=== PATIENT | male | born 1955 | race Caucasian/White ===

== ENCOUNTER 2025-01-15 18:10 | Emergency (ER) | payer MEDICARE, SELFPAY ==
[2025-01-15 18:12] VITALS: BMI 25.2
[2025-01-15 18:41] VITALS: BP 128/70; PULSE 71; RESP 16; TEMP 36.9; O2SAT 99
--- NOTE | 2025-01-15 18:59 | PD.EDSYNC ---
ED Syncope RME/HPI General Chief Complaint: Syncope / Near Syncope Stated Complaint: SYCOPAL EPISODE; FALL & HIT L) MORMONISM/ELBOW Time Seen by Provider: 01/15/25 19:01 Arrival date/time: 01/15/25 18:10 RME / HPI RME / HPI narrative: This section includes all my notes and documentations, including HPI, PE, and ED course. Edwin Gomez MD HPI: 69yo male with a history of DM, HTN, HLD presents to the ED for a chief complaint of syncope. Patient was getting up from his chair when he felt lightheaded, passed out and fell. He hit his head. Currently, no headache, dizziness or chest pain. Feels back to normal. No other complaints reported. ROS: All negative except as documented in HPI. Physical Exam: General: Alert and oriented. No acute distress. Eyes: Conjunctivae and lids clear. EOMI. PERRL. ENT: No signs of head trauma. Neck: Supple. No tenderness. Heart: RRR. Lungs: No respiratory distress. Good air movement. No rhonchi, wheezing, rales. Chest: No tenderness. Abdomen: Soft and nontender. Normal bowel sounds. No distension. No rebound or guarding. Back: No tenderness. Legs: No clubbing, cyanosis, edema. Skin: Warm and dry. Multiple abrasions in the left elbow area, varying size and shape. Neuro: Alert and oriented X 3. Cranial Nerves II-XII grossly intact. No peripheral motor deficits. Musculoskeletal: All major joints and bones are not tender with no limited ROM. I reviewed all diagnostic test results. My interpretation of the EKG is NSR with nonspecific ST-T changes. My review of the CT head report is NAD. My review of the CT cervical spine report is NAD. My review of the CT chest abdomen pelvis report is NAD. Blood and urine tests unremarkable. At this point, diagnoses include syncope of unclear etiology, fall, and multiple abrasions. Treatment here included wound care, tDap, topical bacitracin, and Augmentin. Patient remained stable. Recommended more outpatient workup. Based on my best medical judgment, made decision no further evaluation or treatment indicated at this time. Patient understands and agrees to the discharge instructions customized and printed, see below. Discharge Instructions from Dr. Gomez printed for you: 1. After extensive evaluation, exact cause of your fainting was not determined. But there is no immediately life-threatening condition. Such as stroke or brain tumor or heart attack. 2. Wound care of the left elbow skin abrasions as instructed in the attached handout. 3. To help prevent another episode, eat regular nutritious meals. For good hydration, increase oral fluid and maintain clear urine. If dark or yellow, increase oral fluid. And do everything slowly. When you sit up or stand up, wait a minute before you progress. 4. See a private doctor on 01/16/2025 for recheck and further care. Ask to review all test results and official radiology reports, to make sure you receive all necessary follow-ups and monitoring. Ask for help finding the cause and treatment of what happened. To make sure there is no serious underlying heart condition, ask to help you get more tests for your heart that cannot be done here in the ER. Such as Holter Monitor (cardiac monitoring at home from a day to even a month), heart stress test (on treadmill or with medication), echocardiogram (imaging of your heart structures), heart catherization (checking for blockages in your heart arteries), and a referral to see a Service Porter. Ask for MRI imaging of the brain and referral to see neurologist. 5. Seek immediate medical care with worsening, another fainting episode, or with any concerns. Edwin Gomez MD Related Data Home Medications ?Medication ?Instructions ?Recorded ?Confirmed metformin 1,000 mg tablet 1,000 mg PO BID #0 tabs 02/07/15 11/01/23 (Glucophage) metoprolol tartrate 100 mg tablet 50 mg PO QDAY #0 tabs 02/07/15 11/01/23 rosuvastatin 20 mg tablet 20 mg PO QDAY 03/02/21 11/01/23 lisinopril 20 mg tablet 20 mg PO QDAY 07/30/22 11/01/23 famotidine 20 mg tablet 20 mg PO QDAY 11/01/23 11/01/23 hydrochlorothiazide 12.5 mg capsule 12.5 mg PO QDAY 11/01/23 11/01/23 Allergies Allergy/AdvReac Type Severity Reaction Status Date / Time No Known Allergies Allergy Verified 01/15/25 18:14 Review of Systems Review of Systems Systems Reviewed: All systems reviewed, normal except as documented Past Medical History Past Medical History NEUROLOGIC: Negative Neurological Disorders or Seizures CARDIAC: Positive Cardiac Disorders, Hypercholesterolemia and Hypertension; Negative Congestive Heart Failure, Edema, Cellulitis or Varicose Veins RESPIRATORY: Positive Bronchitis and Sleep Apnea; Negative Chronic Obstructive Pulmonary Disease (COPD) GASTROINTESTINAL: Positive Gastrointestinal Disorders, Gastrointestinal Bleed (at age 17) and Gastroesophageal Reflux Disease; Negative Hepatitis or Pancreatitis GENITOURINARY: Negative Genitourinary Disorders, Renal Disease or Benign Prostatic Hyperplasia MUSCULOSKELETAL: Positive Musculoskeletal Disorders and Gout ENT: Positive Cataracts ENDOCRINE: Positive Endocrine Disorders and Diabetes Mellitus Type 2 (PO MEDS); Negative Diabetes Mellitus Type 1 HEMATOLOGIC: Positive Blood Disorders and Anemia (DURING GI BLEED); Negative Leukemia, Hemophilia, Thalassemia, Sickle Cell Disease or Clotting Problems OTHER HISTORY: Positive Hospitalization (GI BLEED AT AGE 17), Chicken Pox, Measles, Mumps and Cancer; Negative Autoimmune Disease, Down Syndrome, Developmental Delay, Shingles, Falls, Blood Transfusions, Anesthesia Reactions, Chemotherapy, Radiation Therapy or MRSA Family History FAMILY HISTORY: Positive Family Psychiatric Problems, Family Cardiac Disorders, Family Cancer and Family Surgery; Negative Family Respiratory Disorders, Family Gastrointestinal Problems or Family Anesthesia Reaction Surgical History SURGICAL: Positive Tonsillectomy, Abdominal Surgery and Vasectomy; Negative Cardiac Surgery, Pacemaker, Endocrine Surgery, Nephrectomy, Joint Replacement or Neurologic Surgery Social History SMOKING STATUS: Never smoker SUBSTANCE USE: does not use ED Exam Narrative Physical exam: As noted in HPI. Course Quality Measures none Orders Category Date Time Status EKG (ED ONLY) *Do not use* NOW Care 01/15/25 19:03 Completed Wound Care [Wound Care] NOW Care 01/15/25 19:[address] cervical spine wo con Stat Exams 01/15/25 19:[address] chest abdomen pelvis wo Stat Exams 01/15/25 19:[address] head/brain wo con Stat Exams 01/15/25 19:03 Completed EKG (ED Only) Stat Exams 01/15/25 19:03 Draft Bilirubin,Direct Stat Lab 01/15/25 19:30 Completed CBC Stat Lab 01/15/25 19:30 Completed CMP [Comprehensive Metabolic Panel] Stat Lab 01/15/25 19:30 Completed Free T4 (Free Thyroxine) Stat Lab 01/15/25 19:30 Completed Magnesium Stat Lab 01/15/25 19:30 Completed TSH [Thyroid Stimulating Hormone] Stat Lab 01/15/25 19:30 Completed Troponin I Stat Lab 01/15/25 19:30 Completed UA, C/S IF [Urinalysis, C/S if Indicated] Stat Lab 01/15/25 19:45 Completed Amoxicillin/Pot Clav 875 [Augmentin 875] Med 01/15/25 19:01 Discontinued 1 tab PO X1 ONE Bacitracin Oint pkt Med 01/15/25 19:01 Discontinued 1 gm TOP X1 ONE TET,DIP/PERT AC (Adult)-Tdap [Boostrix Adult (Tdap) Med 01/15/25 19:01 Discontinued Vacc] 0.5 ml IMI .ONCE ONE Vital Signs Vital signs: Vital Signs Temperature 98.5 F 01/15/25 18:41 Pulse Rate 71 01/15/25 18:41 Respiratory Rate 16 01/15/25 18:41 Blood Pressure 128/70 01/15/25 18:41 Pulse Oximetry (%) 99 01/15/25 18:41 Oxygen Delivery Method Room Air 01/15/25 18:41 Syncope MDM Narrative MDM Narrative:: 69yo male with a history of DM, HTN, HLD presents to the ED for a chief complaint of syncope. Patient was getting up from his chair when he felt lightheaded, passed out and fell. He did hit his head. No headache, dizziness or chest pain. No other complaints reported. Patient data External records reviewed:: [facility] previous records (Per chart review, patient was seen here on 11/14/21 for hypertension.) Clinical information provided by:: patient Social determinants that could affect healthcare access:: none Patient has the following chronic illnesses:: DM, HTN, HLD How is presenting disease/condition affected by chronic disease/condition?: uneffected by Evaluation data The following diagnostics were reviewed and interpreted by me:: lab results, radiology exam(s) and EKG tracing(s) (My interpretation of the EKG is: Sinus rhythm (75 bpm) with nonspecific ST-T changes. Edwin Gomez MD) Lab and/or radiology exams considered but not ordered:: none Interpretation Summary: I reviewed all diagnostic test results. My interpretation of the EKG is NSR with nonspecific ST-T changes. My review of the CT head report is NAD. My review of the CT cervical spine report is NAD. My review of the CT chest abdomen pelvis report is NAD. Blood tests unremarkable. UA unremarkable. Medications / Prescriptions Medications or Prescriptions considered but not ordered:: none Medication administrations:: Medication Administration History Discontinued Medications Amoxicillin/Clavulanate Potassium (Amoxicillin/Pot Clav 875 Tablet) 1 tab PO X1 ONE Stop: 01/15/25 19:02 Last Admin: 01/15/25 19:33 Dose: 1 tab Documented By: RAND Bacitracin (Bacitracin Oint 1 Gm Packet) 1 gm TOP X1 ONE Stop: 01/15/25 19:02 Last Admin: 01/15/25 19:34 Dose: 1 gm Documented By: RAND Diphtheria/Tetanus/Acell Pertussis (Diphth,Pertuss(Acell),Tet Vac 0.5 Ml Syr- Adult) 0.5 ml IMi .ONCE ONE Stop: 01/15/25 19:02 Last Admin: 01/15/25 19:34 Dose: 0.5 ml Documented By: RAND Wound care, tDap, topical bacitracin, Augmentin. Consultations Consultation(s) initiated? (list below): No Diagnosis Syncope Differential Diagnosis: syncope due to orthostatic hypotension, vasovagal syncope, complete atrioventricular block, subarachnoid hemorrhage, pulmonary embolism, dehydration and other (CVA, brain tumor) Most likely diagnosis given after review of the tests above:: Syncope of unclear etiology, Fall, Multiple abrasions Admission Indicated Admission indicated?: not indicated Explain why admission is indicated or not indicated:: With no condition needing emergent intervention, there was no indication for admission. Admission Request Was there a request for admission?: No Disposition Plan Disposition Plan: Discharge Discharge Attestation Discharge Attestation: The patient and all family members were given an opportunity to ask questions and understood the discharge instructions. Discharge instructions specifically effects, indications for sooner follow up or return to the emergency department, and the expected course of current diagnosis. Patient condition: Stable Discharge Plan Plan Patient Disposition: HOME (Self Care) Prescriptions/Referrals Prescriptions/Med Rec: No Action metoprolol tartrate 100 MG tablet 50 mg PO QDAY Qty: 0 metformin [Glucophage] 1,000 MG tablet 1,000 mg PO BID Qty: 0 rosuvastatin 20 mg Tablet 20 mg PO QDAY famotidine 20 mg tablet 20 mg PO QDAY hydrochlorothiazide 12.5 mg capsule 12.5 mg PO QDAY lisinopril 20 mg Tablet 20 mg PO QDAY Referrals: No Primary/Family,Physician [Primary Care Provider] - In 1 week Problem List Clinical Impression: Syncope, Fall, Multiple abrasions Patient/Caregiver Discharge Instructions Discharge Activity: activity as tolerated Education Materials: ED Abrasions, ED Fainting, Uncertain Cause Additional Instructions: Discharge Instructions from Dr. Gomez printed for you: 1. After extensive evaluation, exact cause of your fainting was not determined. But there is no immediately life-threatening condition. Such as stroke or brain tumor or heart attack. 2. Wound care of the left elbow skin abrasions as instructed in the attached handout. 3. To help prevent another episode, eat regular nutritious meals. For good hydration, increase oral fluid and maintain clear urine. If dark or yellow, increase oral fluid. And do everything slowly. When you sit up or stand up, wait a minute before you progress. 4. See a private doctor on 01/16/2025 for recheck and further care. Ask to review all test results and official radiology reports, to make sure you receive all necessary follow-ups and monitoring. Ask for help finding the cause and treatment of what happened. To make sure there is no serious underlying heart condition, ask to help you get more tests for your heart that cannot be done here in the ER. Such as Holter Monitor (cardiac monitoring at home from a day to even a month), heart stress test (on treadmill or with medication), echocardiogram (imaging of your heart structures), heart catherization (checking for blockages in your heart arteries), and a referral to see a Service Porter. Ask for MRI imaging of the brain and referral to see neurologist. 5. Seek immediate medical care with worsening, another fainting episode, or with any concerns. Print Language: German Stand Alone Forms: [employer] Award Info., Patient Portal Info Letter
--- NOTE | 2025-01-15 19:03 | XR_ITS ---
Examination: CT brain head without contrast. 2-D sagittal coronal reconstructions Date and time of exam:January 15, 2025, 195 hours INDICATIONS: Syncopal episode today, patient fell with injury to the head, head pain CTDI: vol (mGy):53.7 DLP: (mGycm):1123 Technique: Multiple CT axial sections of the brain have been obtained, 5 mm slice thickness. Contrast has not been administered. 2-D sagittal, coronal reconstructions have been obtained Low dose protocols were performed. One or more of the following dose reduction techniques were used; automated exposure control, adjustment of the mA and/or KV according to patient size, use of iterative reconstruction technique. Findings: No significant ventricular enlargement. Left forehead scalp swelling Intra-axial or extra-axial hemorrhage density is not seen. No mass effect or midline shift Basal cisterns are not remarkable. Fourth ventricle is midline. Cranial vault intact. Impression: Negative for acute hemorrhage, mass effect or midline shift
--- NOTE | 2025-01-15 19:03 | XR_ITS ---
Examination: CT cervical spine without contrast 2-D sagittal reconstructions 2-D coronal reconstructions 3-D reconstructions. Exam date and time:January 15, 2025, 1953 hours INDICATIONS: Neck pain today after syncopal episode CTDI:vol (mGy) 8.95 DLP: (mGycm) 200 Technique: Multiple 2 mm axial sections of the cervical spine have been obtained. The coronal and sagittal reconstructions have been obtained. 3-D reconstructions have been obtained. Low dose protocols were performed. One or more of the following dose reduction techniques were used; automated exposure control, adjustment of the mA and/or KV according to patient size, use of iterative reconstruction technique. Findings: Axial sections demonstrate intact base of the skull. C1 exhibit satisfactory relationship to the odontoid. No acute cervical vertebral body fracture seen. Alignment posterior spinous processes satisfactory. Impression: No acute cervical fracture. Advanced degenerative disc disease C3-C4, C4-C5, C5-C6, C6-C7
--- NOTE | 2025-01-15 19:03 | XR_ITS ---
Examination: CT chest, without intravenous contrast. CT abdomen, without intravenous contrast. CT pelvis, without intravenous contrast. 2-D sagittal and coronal reconstructions. 3-D reconstructions. Date and time of exam:January 15, 20252000 hours INDICATIONS: Patient fell today with image of the chest and abdomen, chest pain and abdomen pain CTDI vol (mgy) 8.72 DLP (MGycm)660 Technique: Multiple CT images, 3.0 mm slice thickness, obtained chest, abdomen, pelvis, with the high-resolution 64 slice scanner.. Sagittal and coronal 2-D reconstructions are obtained. 3-D reconstructions Low dose protocols were performed. One or more of the following dose reduction techniques were used; automated exposure control, adjustment of the mA and/or KV according to patient size, use of iterative reconstruction technique. Findings: Thoracic aorta pulmonary arteries intact. No hemopericardium, pneumothorax, pulmonary contusion or hemothorax Sternum thoracic and lumbar vertebral body segments segments appear intact Ribs appear intact No liver or splenic or renal laceration Abdominal aorta intact No free body in the abdomen or pelvis Negative for pneumoperitoneum Normal appendix Colonic diverticulosis Urinary bladder intact Hips bones of the pelvis intact IMPRESSION: Thoracic aorta pulmonary arteries intact No hemopericardium, pneumothorax pulmonary contusion or hemothorax No abdominal parenchymal laceration Abdominal aorta intact. No free blood in the abdomen or pelvis. Osseous structures intact
--- NOTE | 2025-01-15 19:03 | EKG_ITS ---
[facility] Test Date: 2025-01-15 Pat Name: MARCY RASHID Department: Room: - Gender: Male Circuit Designer: : 1955 Requested By: Edwin Mason Order Number: [id number] Reading MD: Edwin Mason Measurements Intervals [place] Rate: 75 P: 61 SD: 173 QRS: -21 QRSD: 93 T: 44 QT: 377 QTc: 422 Interpretive Statements SINUS RHYTHM BORDERLINE LEFT AXIS DEVIATION [QRS AXIS < -20] Compared to ECG 07/30/2022 11:42:09 Sinus bradycardia no longer present Sinus arrhythmia no longer present T-wave abnormality no longer present /store/S0/[id number].pdf
[2025-01-15] MEDS: AMOXICILLIN/POT CLAV 875 TABLET 1 TAB PO (19:33)
[2025-01-15] MEDS: BACITRACIN OINT 1 GM PACKET TOP (19:34)
[2025-01-15] MEDS: DIPHTH,PERTUSS(ACELL),TET VAC 0.5 ML SYR- ADULT IMi (19:34)
[2025-01-15 19:43] LABS: Basophils # (Auto) 0.1 Thou/mm3 (0.0-0.2); Basophils % (Auto) 0 % (0-2.5); Eosinophils # (Auto) 0.2 Thou/mm3 (0.0-0.5); Eosinophils % (Auto) 1 % (0-10); Hematocrit 39.0 % (41.0-53.0); Hemoglobin 13.4 g/dL (13.5-16.0); Immature Granulocytes Auto 0.04 Thou/mm3 (0.00-0.00); Lymphocytes # (Auto) 1.1 Thou/mm3 (1.0-4.8); Lymphocytes % (Auto) 9 % (10-50); Mean Corpuscular HGB Conc 34.4 g/dl (31.0-37.0); Mean Corpuscular Hemoglobin 29.3 pg (25.0-35.0); Mean Corpuscular Volume 85 fL (80-100); Monocytes # (Auto) 0.7 Thou/mm3 (0.0-0.8); Monocytes % (Auto) 6 % (0-12); Neutrophils # (Auto) 10.2 Thou/mm3 (1.8-7.7); Neutrophils % (Auto) 83 % (37-80); Nucleated Red Blood Cell # 0.00 Thou/mm3 (0.00-0.00); Nucleated Red Blood Cell % 0 /100 WBC (0); Platelet Count 224 Thou/mm3 (140-440); RDW Standard Deviation 39.5 fL (35.1-43.9); Red Blood Count 4.57 Miln/mm3 (4.50-5.90); White Blood Count 12.3 Thou/mm3 (3.8-10.6)
[2025-01-15 20:02] LABS: Collection Type, Urine Clean Catch
[2025-01-15 20:03] LABS: Alanine Aminotransferase 31 U/L (10-49); Albumin, Serum 4.9 gm/dL (3.4-4.8); Albumin/Globulin Ratio 2.3 (1.2-2.2); Alkaline Phosphatase 83 U/L (46-116); Anion Gap 11 (7-16); Aspartate Amino Transferase 29 U/L (0-34); BUN/Creatinine Ratio 16 Ratio (12-20); Bilirubin,Direct 0.5 mg/dL (0.0-0.3); Bilirubin,Total 1.5 mg/dL (0.3-1.2); Blood Urea Nitrogen 25 mg/dL (9-23); Calcium 10.5 mg/dL (8.3-10.6); Calcium (Corrected) 10.5 mg/dL (8.5-10.1); Carbon Dioxide 25.0 mMol/L (20.0-31.0); Chloride 98 mMol/L (98-107); Creatinine (Component) 1.6 mg/dL (0.6-1.3); Estimated Creatinine Clearance 45.1 mL/min (>60); Free T4 (Free Thyroxine) 1.20 ng/dL (0.89-1.76); Globulin 2.1 gm/dL (2.3-3.5); Glucose 159 mg/dL (74-106); Magnesium 2.0 mg/dL (1.6-2.6); Osmolality,Calculated 275 (275-295); Potassium 4.6 mMol/L (3.4-5.1); Sodium 134 mMol/L (136-145); Thyroid Stimulating Hormone 1.11 uIU/mL (0.55-4.78); Total Protein 7.0 gm/dL (5.7-8.2); Troponin I < 0.020 ng/mL (0.0-0.045); eGFR 46 See Note
[2025-01-15 20:20] LABS: Bilirubin,Urine Negative (Negative); Blood,Urine Trace (Negative); Clarity,Urine Clear (Clear/Hazy); Color,Urine Yellow (Lt Yel-Yel); Culture Indicated,Urine Not Indicated; Glucose, Urine Negative (Negative); Hyaline Casts,Urine < 1 /hpf (0-1); Ketones,Urine Negative (Negative); Leukocyte Esterase,Urine Negative (Negative); Nitrite,Urine Negative (Negative); PH,Urine 5.5 (5.0-7.0); Protein,Urine Trace (Neg - Trace); RBC,Urine 1 /hpf (0-3); Specific Gravity,Urine 1.019 (1.001-1.035); Squamous Epithelial Cell,Urine < 1 /hpf (0-5); Urobilinogen,Urine Negative mg/dL (0.0-1.0); WBC,Urine 2 /hpf (0-5)
[2025-01-15 21:07] VITALS: RESP 18
== END 2025-01-15 21:09 | disposition home or self-care (01) ==
PROVIDERS: Emergency Provider Emergency Medicine
DX: S50.312A Abrasion of left elbow, initial encounter (principal); W19.XXXA Unspecified fall, initial encounter; M54.2 Cervicalgia; S09.90XA Unspecified injury of head, initial encounter; R07.9 Chest pain, unspecified; Z23 Encounter for immunization
CPT/HCPCS: 36415; 70450; 71250; 72125; 74176; 80053; 81001; 82248; 83735; 84439; 84443; 84484; 85025; 90715; 93005; 99283; A9270

== ENCOUNTER → 2025-01-18 | Outpatient (CLI) | payer MEDICARE, SELFPAY ==
--- NOTE | 2025-01-18 13:56 | XR_ITS ---
Examination: Shoulder,left, 3 views Technique: Shoulder AP internal rotation, AP external rotation, Y view shoulder, 3 views Exam date and time :January 18, 2025 1408 hours INDICATIONS: Patient fell 3 days ago with injury to the shoulder, shoulder pain. FINDINGS: No shoulder fracture or dislocation No foreign body IMPRESSION: No shoulder fracture or dislocation
--- NOTE | 2025-01-18 13:56 | XR_ITS ---
Examination: Left elbow 2 views Technique one AP lateral left elbow 2 views Exam date and time: January 18, 2025 1411 hours INDICATIONS: Patient fell 3 days ago with injury to the elbow, elbow pain. FINDINGS: No fracture or dislocation No elbow effusion IMPRESSION: No fracture or dislocation
== END | disposition home or self-care (01) ==
LOC: SDIM 13:49
PROVIDERS: PCP Family Medicine
DX: S59.902A Unspecified injury of left elbow, initial encounter (principal); S49.92XA Unspecified injury of left shoulder and upper arm, initial encounter; W19.XXXA Unspecified fall, initial encounter
CPT/HCPCS: 73030; 73070